=== PATIENT | male | born 1985 ===

== ENCOUNTER 2018-12-19 02:53 | Observation (INO) | payer SELFPAY ==
[~2018-12-19] VITALS: Ht 172.7 cm; Wt 61.2 kg
[~2018-12-19 02:53] MED LIST: Augmentin 875-1 EACH PO; Keflex500 MG PO; Norco 5-325 Ta1 EACH PO
[2018-12-19 03:22] LABS: BASOPHILS ABSOLUTE AUTO 0.04 K/mm3 (0.00-0.23); BASOPHILS PERCENT AUTO 0 % (0-2); EOSINOPHILS ABSOLUTE AUTO 0.01 K/mm3 (0.00-0.68); EOSINOPHILS PERCENT AUTO 0 % (0-6); Hematocrit 45.3 % (37.0-53.0); Hemoglobin 15.8 g/dL (13.5-17.5); IMMATURE GRAN ABSOLUTE AUTO 0.07 K/mm3 (0.00-0.10); IMMATURE GRAN PERCENT AUTO 1 % (0-1); LYMPHOCYTES ABSOLUTE AUTO 0.96 K/mm3 (0.84-5.20); LYMPHOCYTES PERCENT AUTO 7 % (21-46); MONOCYTES ABSOLUTE AUTO 0.52 K/mm3 (0.16-1.47); MONOCYTES PERCENT AUTO 4 % (4-13); Mean Corpuscular HGB 31.5 pg (26.0-34.0); Mean Corpuscular HGB Conc 34.9 g/dL (31.5-36.5); Mean Corpuscular Volume 90 fL (80-100); NEUTROPHILS ABSOLUTE AUTO 13.07 K/mm3 (1.96-9.15); NEUTROPHILS PERCENT AUTO 89 % (41-73); Platelet Count 252 K/mm3 (150-400); RDW Coefficient Variation 11.6 % (11.7-14.2); RDW Standard Deviation 38.4 fL (35.1-46.3); Red Blood Cell Count 5.02 M/mm3 (4.30-5.90); White Blood Cell Count 14.67 K/mm3 (4.00-11.30)
[2018-12-19 03:39] LABS: Alanine Aminotransfer (ALT/SGP 32 U/L (12-78); Albumin, Blood 4.4 g/dL (3.4-5.0); Albumin/Globulin Ratio 1.2 (0.8-1.8); Alk Phos 69 U/L (50-136); Anion Gap 11 mmol/L (6-16); Aspartate Aminotrans (AST/SGOT 20 U/L (12-37); Bilirubin, Total 1.1 mg/dL (0.1-1.0); Blood Urea Nitrogen 17 mg/dL (8-24); Bun/Creatinine Ratio 27.1 (12.0-20.0); CO2, Blood 23 mmol/L (21-32); Calcium, Blood 9.2 mg/dL (8.5-10.1); Chloride, Blood 105 mmol/L (98-108); Creatinine, Blood 0.63 mg/dL (0.60-1.20); Globulin, Blood 3.6 g/dL (2.2-4.0); Glomerular Filtration Rate >60 (60-); Glucose, Blood 100 mg/dL (70-99); Potassium, Blood 3.6 mmol/L (3.5-5.5); Sodium, Blood 139 mmol/L (136-145)
[2018-12-19] MEDS ORDERED: KETO10 PO (03:52)
--- NOTE | 2018-12-19 08:32 | NUR ---
ARRIVED TO UNIT WITH RIGHT LOWER / UPPER QUAD PAIN SINCE YESTERDAY. DESCRIBES STABBING PAIN, RELIEVED WITH IV FENTANYL. PATIENT NPO AWAITING OR.
--- NOTE | 2018-12-19 11:36 | NUR ---
[place]
--- NOTE | 2018-12-19 11:46 | NUR ---
History, Chart, Medications and Allergies reviewed before start of procedure. Patient confirms NPO status and agrees with scheduled surgery. Lungs clear T/O to Auscultation.
--- NOTE | 2018-12-19 14:15 | NUR ---
PT SLEEPING DEEPLY, NOTED DIFFICULTY BREATHING W/MOIST SOUNDING GURGLE, SUCTIONED, JAW THRUST TO ASSIST W/VENTILATIONS UNTIL O2 VIANCA NORMALIZED.
--- NOTE | 2018-12-19 14:30 | NUR ---
report from deb. jody howard. pt in pacu
--- NOTE | 2018-12-19 14:50 | NUR ---
REPORT FROM PACU.
--- NOTE | 2018-12-19 15:02 | NUR ---
LARGE AMT OF BLOODY DRAINAGE NOTED ON TISSUE AFTER PT COUGHING RO 10-15MIN W/SPLATTER ONTO LINEN.
--- NOTE | 2018-12-19 15:07 | NUR ---
PT TO ROOM FROM PACU. PT ALERT AND ORIENTED. C/O "MY THROAT IS BLEEDING AND IT IS HARD TO BREATHE." VS CHARTED (SAT 88% RA, BP 109/48, HR 107, RESP RATE 20). PT COUGHING AND SPITTING UP MODERATE AMOUNT OF BRIGHT RED BLOOD. PT DENIES ABD PAIN, DENIES PAIN IN THROAT.
--- NOTE | 2018-12-19 15:23 | NUR ---
PT DENIES PAIN/NAUSEA, SATS 95% ON 5L. CALL TO DR ROGERS IN PROCESS. ORDER FOR 2 VIEW CHEST XRAY RECEIVED. ATTEMPTING TO GET IN TOUCH WITH ANESTHESIOLOGIST DR VELAZCO. MESSAGE LEFT.
--- NOTE | 2018-12-19 15:35 | NUR ---
VS CHARTED (SAT 95% ON 5L PER NC, HR 88, BP 102/49, RESP RATE 18). UPDATED PT AND PT FAMILY. SUCTION SET UP ON ROOM.
--- NOTE | 2018-12-19 15:48 | NUR ---
DR ROGERS TO ROOM FOR RE-EVAL. STATES "PT LOOKS GOOD". DR ROGERS STATES HE SPOKE WITH DR VELAZCO AND THERE WAS NOTHING ABNORMAL WITH INTUBATION OR EXTUBATION.
--- NOTE | 2018-12-19 16:00 | NUR ---
VS CHARTED. PT DENIES PAIN/NAUSEA. O2 DECREASED TO 2.5L PER NC. FAMILY AT BEDSIDE. NO OBVIOUS SOURCE OF BLEEDING VISUALIZED IN MOUTH. PT CONT TO COUGH AND SPIT UP BRIGHT RED BLOOD. AWAITING XRAY.
--- NOTE | 2018-12-19 16:12 | NUR ---
PT TO IMAGING VIA [facility].
--- NOTE | 2018-12-19 17:00 | NUR ---
DR ROGERS UPDATED ON XRAY REPORT. NO NEW ORDERS. PLAN TO KEEP PT OVER NIGHT FOR OBS. PT AND FAMILY UPDATED.
--- NOTE | 2018-12-19 17:10 | NUR ---
VSS. PT EATING CRACKERS AND DRINKING WATER. DENIES PAIN. ENCOURAGED PT TO SIT ON SIDE OF BED TO URINATE. PT GETTING HELP FROM FAMILY. WILL CHECK BACK.
--- NOTE | 2018-12-19 17:29 | NUR ---
PT TRAY PROVIDED. 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 PT DENIES PAIN/NAUSEA. 210ML URINE COLLECTED.
--- NOTE | 2018-12-19 17:41 | NUR ---
ABX STARTED PER EMAR ORDERS. PT DENIES PAIN. DENIES NAUSEA. FAMILY AT BEDSIDE.
--- NOTE | 2018-12-19 18:47 | NUR ---
ABX COMPLETE. STAFF ASSISTING PT TO RR.
--- NOTE | 2018-12-20 06:45 | NUR ---
LYING IN SEMI FOWLERS WITH EYES OPEN. HAS RESTED WELL THIS SHIFT. MEDICATED FOR BREAKTHROUGH PAIN ONCE THIS SHIFT. DENIES FURTHER NEEDS AT THIS TIME. SAFETY MEASURES IN PLACE. WILL CONTINUE TO MONITOR.
--- NOTE | 2018-12-20 07:10 | NUR ---
REPORT FROM MICHAEL ALVAREZ. ASSUMED PT CARE. PT DENIES NEEDS AT THIS TIME.
--- NOTE | 2018-12-20 08:05 | NUR ---
ASSESSMENT CHARTED. PT DENIES PAIN OR NAUSEA AT THIS TIME. LUNG SOUNDS CLEAR. PT SUNDAR BREAKFAST WITH NO ISSUES. PLAN TO DC TODAY.
--- NOTE | 2018-12-20 09:30 | NUR ---
DR ROGERS TO ROOM. DC ORDERED VERBALLY EARLIER. PENDING DC.
--- NOTE | 2018-12-20 10:05 | NUR ---
Spiritual care visit conducted. Patient was in discharge process but allowed for some discussion. I provided pastoral care and companionship. Patient responded well.
--- NOTE | 2018-12-20 10:11 | NUR ---
IV TO RIGHT HAND AND RIGHT FA DC. TIPS INTACT, PT SUNDAR WELL. NO S/S INFILTRATION. AREAS DRESSED. REVIEWED DC WITH PT AND PT FAMILY. PT VERBALIZED UNDERSTANDING. PT PROVIDED WITH RX AND RELAVENT EDUCATION. PLAN TO STAY WITH FRIEND.
--- NOTE | 2018-12-20 10:42 | NUR ---
PT ESCORTED OUT VIA WC WITH CLAUDE FORD.
== END 2018-12-20 10:43 | disposition home or self-care (01) ==
LOC: ER 02:53 → SURS 02:54 → ERHOLD 02:54 → SURS 07:44
PROVIDERS: Emergency Medicine; Surgery; ADMIT Surgery
PROC: 0DTJ4ZZ Resection of Appendix, Percutaneous Endoscopic Approach (ICD-10-PCS; principal; 2018-12-19 12:45)
DX: K35.80 Unspecified acute appendicitis (principal)
CPT/HCPCS: 36415; 71046; 74176; 80053; 83690; 85025; 88304; 96361; 96365; 96366; 96375; 96376; 99285-25; G0378; J0295; J1100; J1885; J2250; J2405; J2710; J3010; J7030; J7120